=== PATIENT | female | born 1990 | race Caucasian/White ===

== ENCOUNTER 2020-05-31 12:46 | Outpatient (REF) | payer MEDICAID, SELFPAY ==
[2020-06-02 12:00] LABS: BV Int Neg Control Negative (Negative); BV Int Pos Control Positive (Positive)
== END 2020-05-31 12:47 | disposition home or self-care (01) ==
LOC: HO.LAB 12:46
PROVIDERS: Visit Provider Advanced Practice Midwife
DX: N89.8 Other specified noninflammatory disorders of vagina (principal); Z20.2 Contact with and (suspected) exposure to infections with a predominantly sexual mode of transmission
CPT/HCPCS: 87480; 87491; 87510; 87591; 87660

== ENCOUNTER 2020-06-24 15:09 | Outpatient (REF) | payer MEDICAID, SELFPAY ==
[2020-06-25 12:05] LABS: BV Int Neg Control Negative (Negative); BV Int Pos Control Positive (Positive)
== END 2020-06-24 15:10 | disposition home or self-care (01) ==
LOC: HO.LAB 15:09
PROVIDERS: Visit Provider Advanced Practice Midwife
DX: Z20.2 Contact with and (suspected) exposure to infections with a predominantly sexual mode of transmission (principal); Z86.19 Personal history of other infectious and parasitic diseases
CPT/HCPCS: 87480; 87510; 87660; 99212

== ENCOUNTER 2020-11-26 13:38 | Outpatient (REF) | payer MEDICAID, SELFPAY ==
[2020-11-27 07:41] LABS: HIV AB/AG Nonreactive (Nonreactive); ~HepC Num1 0.06 S/CO (0.00-0.79); ~Hepatitis C Antibody Nonreactive (Nonreactive)
[2020-11-27 07:48] LABS: HBsAGNum1 0.21 S/CO (0.00-0.99); Hepatitis B Surface Antigen Negative (Negative)
[2020-11-27 08:01] LABS: Syphilis Screen Nonreactive (Nonreactive)
[2020-11-27 09:39] LABS: CT PCR NOT DETECTED (Not Detect.); NG PCR NOT DETECTED (Not Detect.)
[2020-11-27 10:05] LABS: BV Int Neg Control Negative (Negative); BV Int Pos Control Positive (Positive)
== END 2020-11-26 13:39 | disposition home or self-care (01) ==
LOC: HO.LAB 13:38
PROVIDERS: Visit Provider Advanced Practice Midwife
DX: Z01.419 Encounter for gynecological examination (general) (routine) without abnormal findings (principal); Z01.84 Encounter for antibody response examination; Z11.4 Encounter for screening for human immunodeficiency virus [HIV]; N89.8 Other specified noninflammatory disorders of vagina; Z20.2 Contact with and (suspected) exposure to infections with a predominantly sexual mode of transmission
CPT/HCPCS: 36415; 86780; 86803; 87340; 87389; 87480; 87491; 87510; 87591; 87660; 99212

== ENCOUNTER → 2020-12-09 11:22 | Outpatient (BNVA) | payer MEDICAID, SELFPAY | PROVIDERS: Visit Provider Obstetrics & Gynecology ==

== ENCOUNTER → 2020-12-18 15:34 | Outpatient (BNVA) | payer MEDICAID, SELFPAY | PROVIDERS: Visit Provider Obstetrics & Gynecology ==

== ENCOUNTER 2021-01-15 10:22 | Emergency (ER) | payer OTHER, MEDICAID, SELFPAY ==
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
[2021-01-15 10:39] VITALS: BP 111/65; PULSE 68; RESP 16; TEMP 37; O2SAT 100; BMI 29.5
[2021-01-15 10:42] VITALS: BP 116/74; PULSE 72; O2SAT 99
[2021-01-15] MEDS: Acetaminophen 325 MG TABLET 650 MG PO (11:51)
== END 2021-01-15 12:38 | disposition home or self-care (01) ==
PROVIDERS: Emergency Provider Emergency Medicine
DX: S16.1XXA Strain of muscle, fascia and tendon at neck level, initial encounter (principal); V43.52XA Car driver injured in collision with other type car in traffic accident, initial encounter; Y93.89 Activity, other specified; Y92.414 Local residential or business street as the place of occurrence of the external cause; Y99.9 Unspecified external cause status
CPT/HCPCS: 70450; 72125; 99283; 99284

== ENCOUNTER 2023-04-19 13:12 | Outpatient (REF) | payer MEDICAID, SELFPAY ==
[2023-04-19 14:58] LABS: Hematocrit 35.7 % (37.0-47.0); Hemoglobin 11.7 g/dl (12.0-16.0); Mean Corpuscular HGB Conc 32.8 g/dl (31.0-35.0); Mean Corpuscular Volume 94.4 fL (80.0-98.0); Mean Platelet Volume 10.4 fL (9.4-12.3); Platelet Count 240 X10*3/uL (160-400); Red Blood Count 3.78 X10*6/uL (4.20-5.50); Red Cell Distribution Width 12.9 % (11.0-16.0); White Blood Count 5.7 X10*3/uL (4.8-10.8)
[2023-04-19 15:33] LABS: Alanine Aminotransferase 9 U/L (0-31); Alkaline Phosphatase 58 U/L (39-117); Anion Gap 10 (12-20); Aspartate Amino Transferase 18 U/L (5-31); Bilirubin Total 0.4 mg/dL (0.0-1.0); Blood Urea Nitrogen 9 mg/dL (9-16); Calcium 9.1 mg/dL (8.4-10.2); Carbon Dioxide 29 mmol/L (22-29); Chloride 103 mmol/L (96-108); Estimated Glomerular Filt Rate > 60; Glucose Random 97 mg/dL (60-115); Potassium 3.4 mmol/L (3.3-5.1); Sodium 139 mmol/L (135-145); Total Protein 6.9 g/dL (6.5-8.0)
[2023-04-20 13:14] LABS: Transglutaminase IgA <1.0 U/mL
[2023-04-20 16:39] LABS: Immunoglobulin A 419 mg/dL (47-310)
== END 2023-04-19 13:13 | disposition home or self-care (01) ==
LOC: HO.LAB 13:12
PROVIDERS: Visit Provider Internal Medicine
DX: R19.4 Change in bowel habit (principal); K52.9 Noninfective gastroenteritis and colitis, unspecified
CPT/HCPCS: 36415; 80053; 82784; 84443; 85027; 86364; 99202

== ENCOUNTER 2023-04-19 13:12 | Outpatient (AMB) | payer MEDICAID, SELFPAY ==
--- NOTE | 2023-04-19 13:17 | A.OFFVIS_ITS ---
Intake Vital Signs 04/19/23 13:19 Height 5 ft Weight 150 lb BMI 29.3 BP 112/64 Blood Pressure Location Lt brachial Position Sitting Intake Visit Reasons: Colitis Intake Note: Phil present in the office as a new patient for Colitis. CC: She went to [facility] because she said there was something that was found on the right side of her colon but she was told to come to GI but she is unfamiliar with what she has. She was getting pains in her left side - she has issues having a BM. She was given Antibiotics but she was having nausea and vomiting and she stopped taking them. Allergies No Known Allergies Allergy (Unknown, Verified 04/19/23 13:20) HPI HPI Comments History of Present Illness Details This is a 32 y.o F with no significant PMH who is here for abnormal scan. Was seen in [facility] ER last month for x2 weeks of LLQ associated with constipation which would get worse on eating. When she had a scan in ER, was told that she had thickening of the L side of the colon from constipation vs infection. She was given Abx which she did not take, and bowel regimen with which her abd sx resolved and has not recurred since. Does not report any fevers, chills, background of diarrhea. No changes in appetite, or weight loss. Currently BMs are regular with x2 senna at bedtime. Primarily sent here for abnormal findings on CT scan but report not available for review. [facility] Medical History IUD (intrauterine device) in place Surgical History Hx of colposcopy with cervical biopsy Family History Maternal Grandmother Diabetes mellitus Social History Alcohol intake: never Gender identity: Female Female Reproductive History Menstrual Age of Menarche: 11 Review of Systems Const All systems reviewed & are unremarkable except as noted in HPI and below Physical Exam Vital Signs: Last Vital Signs BP 112/64 04/19/23 13:19 BMI result Body Mass Index 29.3 Gen appear: NAD HEENT: nonicteric, no cervical lymphadenopathy Chest: CTA CVS: Regular S1/S2 Abd: soft, nontender, nondistended, bowel sounds + Ext: no peripheral edema Neuro: A/Ox3, noted to move all extremities spontaneously Psych: interacting appropriately Assessment & Plan Assessment & Plan (1) Change in bowel habit: Code(s): R19.4 - Change in bowel habit (2) Proctocolitis: Code(s): K52.9 - Noninfective gastroenteritis and colitis, unspecified Plan Appears was seen in ER for severe consipation and may have had some stercoral colitis based on clinical description of ER visit. Will obtain records. Currently asymptomatic and has no GI concerns. BMs are regular on senna. Plan: - Get [facility] - Labs to r/o IBD, celiac, thyroid dysfunction - Does not appear to have an indication for colo at this time but will call pt based on review of above Follow up contingent on above Orders: Orders Comprehensive Met. Panel Today R19.4 - Change in bowel habit Transglutaminase IgA Today R19.4 - Change in bowel habit TSH reflex Free T4 Today R19.4 - Change in bowel habit Calprotectin, Fecal Today R19.4 - Change in bowel habit Complete Blood Count no Diff Today R19.4 - Change in bowel habit Immunoglobulin A Today R19.4 - Change in bowel habit Coding Level of Care Code New Pt Level 4 (74247) Diagnoses Change in bowel habit R19.4 Proctocolitis K52.9
[2023-04-19 13:19] VITALS: BP 112/64; BMI 29.3
== END 2023-04-19 15:56 | disposition home or self-care (01) ==
PROVIDERS: Visit Provider Internal Medicine
DX: R19.4 Change in bowel habit (principal); K52.9 Noninfective gastroenteritis and colitis, unspecified
CPT/HCPCS: 99204

== ENCOUNTER 2023-04-23 10:19 | Outpatient (REF) | payer MEDICAID, SELFPAY ==
[2023-04-29 21:43] LABS: Calprotectin, Fecal 10 mcg/g
== END 2023-04-23 10:20 | disposition home or self-care (01) ==
LOC: HO.LNP 10:19
PROVIDERS: Visit Provider Internal Medicine
DX: R19.4 Change in bowel habit (principal)
CPT/HCPCS: 83993

== ENCOUNTER 2023-07-23 13:52 | Outpatient (REF) | payer MEDICAID, SELFPAY ==
[2023-07-25 20:28] LABS: TS Negative Control Passed; TS Panel A 2; TS Panel B 3; TS Positive Control Passed; TSpotTB Negative (Negative)
[2023-07-26 21:23] LABS: Rubeola IgG (Measles) <13.50 AU/mL
== END 2023-07-23 13:53 | disposition home or self-care (01) ==
LOC: HO.HHCL 13:52
PROVIDERS: Visit Provider Internal Medicine
DX: Z00.00 Encounter for general adult medical examination without abnormal findings (principal); Z11.1 Encounter for screening for respiratory tuberculosis
CPT/HCPCS: 36415; 86481; 86735; 86762; 86765

== ENCOUNTER 2023-09-07 09:54 | Outpatient (REF) | payer MEDICAID, SELFPAY ==
[2023-09-07 11:54] LABS: MANUAL DIFF FLAG NO
[2023-09-07 12:17] LABS: Basophils Percent Auto 0.9 % (0-2); Eosinophils Absolute Auto 0.1 X10*3/uL (0.0-0.4); Eosinophils Percent Auto 1.6 % (0-4); Hematocrit 38.2 % (37.0-47.0); Hemoglobin 12.6 g/dl (12.0-16.0); Imm Gran Abs Auto 0.01 X10*3/uL (0.00-0.03); Imm Gran Pct Auto 0.2 % (0.0-0.4); Lymphocytes Absolute Auto 1.2 X10*3/uL (1.2-4.9); Lymphocytes Percent Auto 27.7 % (20-40); Mean Corpuscular Hemoglobin 30.4 pg (27.0-33.0); Mean Corpuscular Volume 92.3 fL (80.0-98.0); Mean Platelet Volume 10.2 fL (9.4-12.3); Monocytes Absolute Auto 0.3 X10*3/uL (0.1-1.2); Monocytes Percent Auto 7.8 % (2-11); Neutrophils Absolute Auto 2.7 x10*3/uL (2.0-8.3); Neutrophils Percent Auto 61.8 % (45-73); Platelet Count 271 X10*3/uL (160-400); Red Blood Count 4.14 X10*6/uL (4.20-5.50); Red Cell Distribution Width 13.2 % (11.0-16.0); White Blood Count 4.4 X10*3/uL (4.8-10.8)
[2023-09-07 12:21] LABS: Prothrombin Time 12.3 SEC (11.1-13.3)
[2023-09-07 12:24] LABS: Partial Thromboplastin Time 27.6 SEC (26.0-36.8)
[2023-09-07 12:59] LABS: HIV AB/AG Nonreactive (Nonreactive)
[2023-09-07 13:11] LABS: Alanine Aminotransferase 12 U/L (0-31); Albumin Level 4.2 g/dL (3.5-5.0); Alkaline Phosphatase 65 U/L (39-117); Anion Gap 11 (12-20); Aspartate Amino Transferase 19 U/L (5-31); Bilirubin Total 0.4 mg/dL (0.0-1.0); Blood Urea Nitrogen 10 mg/dL (9-16); Calcium 9.3 mg/dL (8.4-10.2); Carbon Dioxide 28 mmol/L (22-29); Chloride 104 mmol/L (96-108); Estimated Glomerular Filt Rate > 60; Glucose Random 89 mg/dL (60-115); Potassium 4.1 mmol/L (3.3-5.1); Sodium 139 mmol/L (135-145); Thyroid Stimulating Hormone 1.11 uIU/mL (0.32-4.0); Total Protein 7.4 g/dL (6.5-8.0)
== END 2023-09-07 09:55 | disposition home or self-care (01) ==
LOC: HO.HHCL 09:54
PROVIDERS: Visit Provider Internal Medicine
DX: Z01.818 Encounter for other preprocedural examination (principal)
CPT/HCPCS: 36415; 80053; 84443; 85025; 85610; 85730; 87389

== ENCOUNTER → 2023-09-07 10:18 | Outpatient (REF) | payer MEDICAID, SELFPAY ==
--- NOTE | 2023-09-07 | ECG_ITS ---
Test Reason : pre op exam Blood Pressure : / mmHG Vent. Rate : 067 BPM Atrial Rate : 067 BPM P-R Int : 156 ms QRS Dur : 086 ms QT Int : 390 ms P-R-T Axes : 055 081 058 degrees QTc Int : 412 ms Normal sinus rhythm Normal ECG No previous ECGs available Referred By: Isabell Garcia Electronically Signed By:Rafy Collier
== END ==
LOC: HO.CARD 10:18
PROVIDERS: PCP Internal Medicine; Visit Provider Internal Medicine
DX: Z01.818 Encounter for other preprocedural examination (principal)
CPT/HCPCS: 36415; 80053; 84443; 85025; 85610; 85730; 87389; 93005

== ENCOUNTER → 2023-09-07 10:39 | Outpatient (BNV) | payer MEDICAID, SELFPAY | PROVIDERS: PCP Internal Medicine; Visit Provider Internal Medicine Cardiovascular Disease | DX: Z01.818 Encounter for other preprocedural examination (principal) | CPT/HCPCS: 93010 ==

== ENCOUNTER 2024-01-21 16:48 | Outpatient (REF) | payer MEDICAID, SELFPAY ==
[2024-01-22 11:31] LABS: Bacterial Vaginosis PCR POSITIVE (Negative); Candida Group PCR NOT DETECTED (Not Detect); Candida glab krusei PCR NOT DETECTED (Not Detect); Trichomonas vaginalis PCR NOT DETECTED (Not Detect)
[2024-01-25 16:04] LABS: HPV mRNA E6/E7 Not Detected (Not Detected)
== END 2024-01-21 16:49 | disposition home or self-care (01) ==
LOC: HO.HHCLNP 16:48
PROVIDERS: Visit Provider Internal Medicine
DX: Z12.4 Encounter for screening for malignant neoplasm of cervix (principal)
CPT/HCPCS: 0352U; 36415; 87624; 88175

== ENCOUNTER 2024-05-29 13:08 | Outpatient (REF) | payer MEDICAID, SELFPAY ==
[2024-05-29 18:22] LABS: Bacterial Vaginosis PCR POSITIVE (Negative); Candida Group PCR NOT DETECTED (Not Detect); Candida glab krusei PCR NOT DETECTED (Not Detect); Trichomonas vaginalis PCR NOT DETECTED (Not Detect)
[2024-05-29 18:56] LABS: CT PCR NOT DETECTED (Not Detect.); NG PCR NOT DETECTED (Not Detect.)
== END 2024-05-29 13:09 | disposition home or self-care (01) ==
LOC: HO.LNP 13:08
PROVIDERS: Visit Provider Registered Nurse
DX: N89.8 Other specified noninflammatory disorders of vagina (principal); R30.0 Dysuria
CPT/HCPCS: 0352U; 87086; 87491; 87591

== ENCOUNTER 2024-05-30 14:22 | Outpatient (AMB) | payer MEDICAID, SELFPAY ==
--- NOTE | 2024-05-30 14:23 | MHC.OFFVIS ---
Intake Visit Reasons: TV BC consult Allergies No Known Allergies Allergy (Unknown, Verified 05/30/24 14:23) Medication List - Last Reconciled 05/30/24 by Bhumi Tyler CNM cyclobenzaprine 10 mg PO TID PRN ibuprofen 600 mg PO Q8H PRN levonorgestrel (Mirena) intrauterine Is last menstrual period known: Yes Last menstrual period: 05/13/24 HPI HPI TV BC consult: Details: This is a tele visit to discuss patient's control she has the ParaGard IUD and it has been in since 2017 but she wants to talk about getting it taken out because she feels she is getting too many episodes of bacterial vaginosis she has been going to the [facility] for evaluations of her vaginal discharge whenever she has symptoms and she says she has gets maybe 4 episodes of BV a year she is with her same partner for the last 10 years. She says she checks out negative for all the other infections. She says they just diagnosed her recently and called her and told her there would be sending a prescription to her pharmacy and she chose the pills and she is going to go pick them up.. Patient says she really wants to just get her tubes tied but she has thinking that the IUD had something to do with all the recurrences of BV. [facility] Medical History (Updated 05/30/24 @ 15:04 by Bhumi Tyler CNM) IUD (intrauterine device) in place Surgical History Hx of colposcopy with cervical biopsy Family History Maternal Grandmother Diabetes mellitus Social History Alcohol intake: never Gender identity: Female Female Reproductive History Menstrual Age of Menarche: 11 Duration of menses: 3-5 days Date of last menstrual period: 05/13/24 control method: progestin IUCD Total pregnancies: 3 Full term: 3 Telehealth Telehealth Telehealth Platform: Telephone Location of provider rendering services: practice address Location of patient: address on file Patient Identification confirmed using: Name, : Yes Telehealth method: voice only Patient verbally consented to treatment: Yes Patient verbally consented to billing insurance company: Yes Patient informed of any privacy concerns related to visit: Yes Minutes spent on Phone/Video with Pt.: 19 (3 cr/19 speaking w pt /managing concerns;8 charting.) Results Reviewed Results Reviewed: per our records 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 Assessment & Plan Assessment & Plan (1) Family planning advice: Code(s): Z30.09 - Encounter for other general counseling and advice on contraception Category: Medical (2) Vaginal odor: Code(s): N89.8 - Other specified noninflammatory disorders of vagina Category: Medical (3) IUD (intrauterine device) in place: Comment: Paragard placed 2016 Code(s): Z97.5 - Presence of (intrauterine) contraceptive device Category: Medical Plan Reviewed patient's desire for tubal ligation. Reviewed her happiness with the ParaGard IUD even if she goes ahead with her plan cover it may not have anything to do with her episodes of bacterial vaginosis and their recurrence and I reviewed issues involved with BV and that often the only solution is to use condoms. She is going to be picking up her metronidazole pills which is her chosen method of treatment from an episode that was diagnosed at the [facility]. Reviewed that if she really wants to have her tubes tied that she should have consultation the director medical affairs and the ParaGard IUD in if it is not causing any trouble until such time as she has her the ligation so she does not have an interim unexpected /she agrees with the logic of this. I also reviewed other potential treatments for occasional recurrences of bacterial vaginosis odor reviewed that many women are findings success occasional use boric acid capsules is discussed various strategies she could consider. Also questioned her need for an annual exam as according to our records she has not had an Pap smears since 2019 she is due. She then remember that she has been getting her in exam and Pap smears with her primary care provider at the [facility] and she assured that her last was negative.. I instructed the patient to call the october number of the office and request an appointment for a tubal ligation consultation visit and have the discussion w director medical affairs, that I would recommend IUD in place until such time as that occurs. Coding Level of Care Code Tele Est Pt Level 3 (25121) Diagnoses Family planning advice Z30.09 Vaginal odor N89.8 IUD (intrauterine device) in place Z97.5 Time Spent (min) 30
== END 2024-05-30 15:13 | disposition home or self-care (01) ==
LOC: HO.HWSM 14:22
PROVIDERS: PCP Internal Medicine; Visit Provider Advanced Practice Midwife
DX: Z30.09 Encounter for other general counseling and advice on contraception (principal); N89.8 Other specified noninflammatory disorders of vagina; Z97.5 Presence of (intrauterine) contraceptive device
CPT/HCPCS: 99213

== ENCOUNTER → 2024-05-30 14:22 | Outpatient (BNVA) | payer MEDICAID, SELFPAY | PROVIDERS: PCP Internal Medicine; Visit Provider Advanced Practice Midwife ==

== ENCOUNTER 2024-12-05 10:46 | Outpatient (AMB) | payer MEDICAID, SELFPAY ==
--- NOTE | 2024-12-05 10:47 | A.OFFVIS_ITS ---
Vital Signs 12/05/24 10:49 Height 5 ft Weight 140 lb BMI 27.3 BP 110/72 Intake Visit Reasons: Tubal consult Intake Note: patient here for tubal consult, have 3 children [address] Light Lamp Cleaner Required: Yes Street Light Lamp Cleaner Language: Floor Nurse Services: Street Light Lamp Cleaner Present (in person) Street Light Lamp Cleaner Name: Marely JEAN Information Interpreted: non-clinical & clinical Accompanied by: Self / Same As Patient Allergies No Known Allergies Allergy (Unknown, Verified 12/05/24 10:52) Is last menstrual period known: Yes Last menstrual period: 11/22/24 HPI Comments Details: Presenting to discuss different options of control. 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 Sexually active: Yes Sexual orientation: Straight/Heterosexual Gender identity: Female Female Reproductive History Menstrual Age of Menarche: 11 Date of last menstrual period: 11/22/24 control method: copper IUCD Total pregnancies: 3 Full term: 3 Number of Living Children: 3 Date of last pap smear: 01/21/24 Review of Systems Const All systems reviewed & are unremarkable except as noted in HPI and below Reports as per HPI and Reports no additional complaints GI Reports no additional complaints Reports no additional complaints Physical Exam Vital Signs: Last Vital Signs BP 110/72 12/05/24 10:49 BMI result Body Mass Index 27.3 Assessment & Plan Assessment & Plan (1) Family planning advice: Code(s): Z30.09 - Encounter for other general counseling and advice on contraception Category: Medical Plan: Discussed with the patient the different options of control including control pills/Nuvaring, DMPA, different types of IUD ?s, sterilization. All the pros, cons, risks and benefits of each were discussed with the patient. The patient decided to go ahead with an IUD, so a more detailed discussion was carried on including types (Progesterone, Copper), mechanism of action, risks (infection, uterine perforation, failure with ectopic , septic AB, dysmenorrhea with Paraguard, others) benefits (efficient contraceptive method, hypo menorrhea with Progesterone IUD, others) GC/CG will be taken and the patient was asked to call day one of next cycle for ParaGard IUD removal and Mirena IUD insertion. Coding Level of Care Code Est Pt Level 3 (81774) Diagnoses Family planning advice Z30.09
[2024-12-05 10:49] VITALS: BP 110/72; BMI 27.3
--- OUTSIDE RECORDS SUMMARY | 2024-12-05 12:07 | XMS_ITS | Encounter Summary ---
Author Organization [employer] [facility] Address [address] [place] [address] [address] [place] [address] Care Team Providers Care Tool Room Machinist Name Role Phone Isabell Cotton MD Primary Care Provide r Encounter Details Date Type Department Care Team (Late st Contact Info) Description 06/29/2023 Telephone [facility] MEDICINE [address] [place], [place] [phone] Isabell Cotton MD [address] [place] [address] Social History Tobacco Use Types Packs/Day Years Used Date Smoking Tobacco: Never Smokeless Tobacco: Never Alcohol Use Standard Drinks/Week Comments Yes 0 (1 standard drink = 0.6 oz pur e alcohol) Occassionally Comments Unknown Sex and Gender Information Value Date Recorded Sex Assigned at Female 04/13/2022 10:16 AM EDT Legal Sex Female 10:16 AM EDT Gender Identity Female 04/13/2022 10:16 AM EDT Sexual Orientation Straight 04/13/2022 10 :16 AM EDT documented as of this encounter Plan of Treatment Not on file documented as of this encounter Visit Diagnoses Not on filedocumented in this encounter Care Teams Tool Room Machinist Relationship Specialty Start Date End Date Isabell Cotton MD [address] [place] [address] [phone] PCP - General Family Medicine 03/02/18 documented as of this encounter
== END 2024-12-05 11:14 | disposition home or self-care (01) ==
LOC: HO.HWS 10:46
PROVIDERS: PCP Internal Medicine; Visit Provider Obstetrics & Gynecology
DX: Z30.09 Encounter for other general counseling and advice on contraception (principal)
CPT/HCPCS: 99213

== ENCOUNTER → 2024-12-05 10:46 | Outpatient (BNVA) | payer MEDICAID, SELFPAY | PROVIDERS: PCP Internal Medicine; Visit Provider Obstetrics & Gynecology | DX: Z30.09 Encounter for other general counseling and advice on contraception (principal) | CPT/HCPCS: 99212 ==

== ENCOUNTER 2024-12-21 08:28 | Outpatient (REF) | payer MEDICAID, SELFPAY ==
[2024-12-21 15:47] LABS: CT PCR NOT DETECTED (Not Detect.); NG PCR NOT DETECTED (Not Detect.)
== END 2024-12-21 08:29 | disposition home or self-care (01) ==
LOC: HO.LNP 08:28
PROVIDERS: PCP Internal Medicine; Visit Provider Obstetrics & Gynecology
DX: Z30.433 Encounter for removal and reinsertion of intrauterine contraceptive device (principal); Z32.02 Encounter for pregnancy test, result negative
CPT/HCPCS: 58300; 58301; 81025; 87491; 87591; J7298

== ENCOUNTER 2024-12-21 08:28 | Outpatient (AMB) | payer MEDICAID, SELFPAY ==
--- NOTE | 2024-12-21 08:32 | MHC.OFFVIS ---
Vital Signs 12/21/24 08:36 Height 5 ft Weight 140 lb BMI 27.3 Intake Visit Reasons: Paragard removal /mirena insertion Gem Stone Cutter Required: Yes Gem Stone Cutter Language: Concrete Mixing Plant Superintendent Services: Gem Stone Cutter Present (in person) Gem Stone Cutter Name: Marely JEAN Information Interpreted: non-clinical & clinical Sign Painter Apprentice: Sign Painter Apprentice Present (Marely JEAN) Accompanied by: Self / Same As Patient Allergies No Known Allergies Allergy (Unknown, Verified 12/21/24 08:36) HPI Comments Details: Presenting for ParaGard IUD removal and Mirena IUD insertion. 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 Sexual orientation: Straight/Heterosexual Gender identity: Female Female Reproductive History Menstrual Age of Menarche: 11 Review of Systems Const All systems reviewed & are unremarkable except as noted in HPI and below Reports as per HPI and Reports no additional complaints GI Reports no additional complaints Reports no additional complaints Office Procedures IUD Insert/Removal Details Details: ParaGard IUD removal Counseling/Consent: After discussing with the patient the risks of the procedure including bleeding, infection, scar tissue formation, , possible injury to blood vessels or nerves, chronic arm pain, blood transfusion, and irregular unpredictable bleeding Alternative options were discussed with the patient including but not limited: Do nothing. The patient signed the consent and agreed with the plan; all questions answered. Urine test was done in the office and was negative Preop dx: Requesting ParaGard IUD removal Op: ParaGard IUD removal Post op dx: same EBL= 10 cc Procedure: The patient was put in the dorsal lithotomy position a speculum was inserted in the vagina the IUD thread identified. Using a Deedee clamp the thread was grasped and the IUD pulled out with no complications. The patient tolerated the procedure well and was advised to use a different method for contraception. This was followed by Mirena IUD insertion Mirena IUD insertion The patient is presenting for Mirena IUD insertion Urine test was done in the office and was negative; All the contraindications were excluded. The following possible complications were discussed with the patient: Intrauterine , Ectopic , Sepsis, Pelvic Infection, Irregular Bleeding and Amenorrhea, Perforation, Expulsion, Ovarian Cysts, Breast Cancer, The following adverse effects were discussed with the patient: alteration of menstrual bleeding pattern, including: unscheduled uterine bleeding decreased uterine bleeding increased scheduled uterine bleeding female genital tract bleeding ,amenorrhea , genital discharge , vulvovaginitis , breast pain , benign ovarian cyst and associated complications , dysmenorrhea , Gastrointestinal disorders abdominal/pelvic pain, headache/migraine , back pain , acne , depression Alternative options were discussed with the patient including but not limited: control pills, patch, NuvaRing, Depo-medroxyprogesterone acetate, Nexplanon, copper IUD, sterilization, vasectomy, others The procedure was explained in detail to patient , at the end patient signed the informed consent obtained. A no touch technique was used throughout the procedure. A speculum was placed into vagina and cervix was cleaned with betadine). A tenaculum was placed. A plastic sound was advanced through the external and internal os until it reached the fundus of the uterus, the depth was 8 cm. The sound was then withdrawn. The IUD was loaded in a sterile manner and advanced into position. The string was visualized and cut to 3 cm. Tenaculum site hemostatic. All instruments removed from vagina. Patient tolerated the procedure well. NO complications were noted. Patient was instructed to call for fever over 100.4, significant pain unrelieved by Motrin, IUD expulsion, heavy bleeding, or abnormal discharge. In addition, the following clinical considerations were discussed with the patient to call for removal: A stroke or heart attack ,Very severe or migraine headaches ,Unexplained fever ,Yellowing of the skin or whites of the eyes, as these may be signs of serious liver problems , or suspected , Pelvic pain or pain during sex ,HIV positive seroconversion in herself or her partner , Possible exposure to sexually transmitted infections Unusual vaginal discharge or genital sores , severe vaginal bleeding or bleeding that lasts a long time, or if she misses a menstrual period, Inability to feel Mirena's threads Counseled the patient that the IUD does not protect against STI's, recommended use of condoms for the first 7 days post insertion and explained to the patient that condoms are recommended for patients at risk for sexually transmitted infections. Informed the patient that Mirena IUD is FDA approved for 8 years for contraception for 5 years for the treatment of heavy menses Instructed the patient to schedule a Follow up appointment in 4 to 6 weeks following insertion. This note was generated with a voice recognition program. Some errors may have been overlooked during the review of this note. Sometimes these errors may affect the content or meaning of a given sentence. 82400-NCX Insertion 69082-JSV Removal Procedure code (CPT) selection complete Office Meds Mirena 21 mcg/24 hr (up to 8 years) 52 mg intrauterine device Performing Provider: Shon Dominguez MD Performing Location: [facility] Documented (not given) by: Shon Dominguez MD on 12/21/24 08:46 Dose Route Admin Location Dispensed Lot Number Expiration Date [facility] Flatbed Owner Operator 1 device intrauterine ea Total Dispensed Waste n/a n/a Assessment & Plan Assessment & Plan (1) Encounter for IUD removal and reinsertion: Code(s): Z30.433 - Encounter for removal and reinsertion of intrauterine contraceptive device Category: Medical Plan: UPT done in the office was negative, GC/CT done, ParaGard IUD removed, Mirena IUD inserted, see procedure note Orders: Orders AMB IUD Insertion/Removal - Practice Supplied Today Z30.433 - Encounter for removal and reinsertion of intrauterine contraceptive device AMB HCG Urine Test Today Z32.02 - Encounter for test, result negative Medications: New Mirena (levonorgestrel) 1 device intrauterine ONCE 1 ea 0RF IUD removal/insertion NS Z30.433 - Encounter for removal and reinsertion of intrauterine contraceptive device Coding Level of Care Code Procedure Only Diagnoses Encounter for IUD removal and reinsertion Z30.433 CPT Codes Details - CPT: 66041-LPP Insertion ([id number]) Details - CPT: 13681-QTO Removal ([id number])
[2024-12-21 08:36] VITALS: BMI 27.3
--- OUTSIDE RECORDS SUMMARY | 2024-12-21 08:40 | XMS_ITS | Encounter Summary ---
Author Organization [facility] Address [address] [place] [address] [address] [place] [address] Care Team Providers Care Neon Glass Blower Name Role Phone Isabell Cotton MD Primary Care Provide r Encounter Details Date Type Department Care Team (Late st Contact Info) Description 06/29/2023 Telephone [facility] MED[facility]INE [address] [place], [place] [phone] Isabell Cotton MD [address] [place] [address] Social History Tobacco Use Types Packs/Day Years [...] on filedocumented in this encounter Care Teams Neon Glass Blower Relationship Specialty Start Date End Date Isabell Cotton MD [address] [place] [address] [phone] PCP - General Family Medicine 03/02/18 documented as of this encounter
== END 2024-12-21 09:03 | disposition home or self-care (01) ==
LOC: HO.HWS 08:28
PROVIDERS: PCP Internal Medicine; Visit Provider Obstetrics & Gynecology
DX: Z30.433 Encounter for removal and reinsertion of intrauterine contraceptive device (principal); Z32.02 Encounter for pregnancy test, result negative
CPT/HCPCS: 58300; 58301

== ENCOUNTER 2025-02-08 11:12 | Outpatient (AMB) | payer MEDICAID, SELFPAY ==
--- NOTE | 2025-02-08 11:34 | MHC.OFFVIS ---
Intake Visit Reasons: IUD check Public Service Director Required: Yes Public Service Director Language: Isotope Hydrologist Services: Public Service Director Present (in person) Public Service Director Name: TED Neri Information Interpreted: non-clinical & clinical Customer Strategy Manager: Customer Strategy Manager Present (TED Neri) Accompanied by: Self / Same As Patient Allergies No Known Allergies Allergy (Unknown, Verified 02/08/25 11:35) HPI Comments Details: The patient is presenting for IUD check after 1 st period following IUD insertion. The patient has no complaints periods are normal, not painful, and flow is normal. 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 Sexual orientation: Straight/Heterosexual Gender identity: Female Female Reproductive History Menstrual Age of Menarche: 11 Review of Systems Const All systems reviewed & are unremarkable except as noted in HPI and below Physical Exam General: Yes no CVA tenderness External Female Exam: normal external appearance and normal appearance of the urethra Speculum Exam - Vagina: normal appearance of the vagina, normal palpation, no lesions and no masses Speculum Exam - Cervix: normal appearance of the cervix, normal palpation, no lesions, no masses, nontender and Other cervical findings present (IUD thread seen) Bimanual exam- vagina & uterus: normal bimanual exam, normal palpation, uterine size normal, normal palpation, uterine shape normal, No Cervical tenderness present and non-tender Bimanual Exam- Adnexa, other: normal adnexae Back/Spine/Pelvis Back: no CVA tenderness Results AMB Test Urine AMB Test Urine Negative Last Edit by Marely Gunn CMA on 02/08/25 11:35 Results Reviewed Results Reviewed: Laboratory Last Values [facility] Negative 02/08/25 11:34 Assessment & Plan Assessment & Plan (1) IUD check up: Code(s): Z30.431 - Encounter for routine checking of intrauterine contraceptive device Category: Medical Plan: UPT done in the office was negative. Discussed with the patient the finding on physical exam, IUD string in place, the patient was reassured. Instructions given to patient to call in case of temperature above 100.4, severe cramping/pelvic pain, abnormal discharge or abnormal uterine bleeding or if she misses her menstrual cycle. Otherwise follow-up at her annual exam appointment. All questions answered, the patient verbalized understanding. Orders: Orders AMB HCG Urine Test Today Z32.02 - Encounter for test, result negative Coding Level of Care Code Est Pt Level 3 (73342) Diagnoses IUD check up Z30.431
--- OUTSIDE RECORDS SUMMARY | 2025-02-08 12:31 | XMS_ITS | Encounter Summary ---
Author Organization [facility] Address [address] [place] [address] 7 [place] [address] Care Team Providers Care Footwear Factory Worker Name Role Phone Isabell Cotton MD Primary Care Provide r Reason for Visit * Reason Onset Date Comments Appointment Request 12/30/2023 Encounter Details Date Type Department Care Team ([facility] Contact Info) Description 12/30/2023 Telephone [facility] MEDICINE [address] [place], [place] [phone] Isabell Cotton MD [address] [place], [place] [phone] Appointment Request Social History Tobacco Use Types Packs/Day Years Used Date Smoking Tobacco: Never Passive Smoke Exposure: Never Smokeless Tobacco: Never Alcohol Use Standard Drinks/Week Comments Yes 0 (1 standard drink = 0.6 oz pur e alcohol) Occassionally Depression Answer Date Recorded Patient Health Questionnaire-9 Score 0 07/23/2023 Patient Health Questionnaire-9 Score 0 07/23/2023 Last PHQ-9: Questionnaire Data Not on file 0 07/23/2023 Housing Stability Answer Date Recorded What is your housing situation today? I have darion wheat 07/20/[address] you li ve. Do you have problems with any of the following? None of the above 07/20/2023 Food Insecurity Answer Date Recorded Within the past 12 months, y ou worried that your food would run out before you got money to buy more: Never True 07/20/2023 Within the past 12 months,th e food you bought just didn't last and you didn't have enough money to get more: Never True 11/2023 Transportation Answer Date Recorded In the past 12 months, has l ack of transportation kept you from medical appts, meetings, work or from getting things needed for daily living? No 07/20/2023 Utilities Answer Date Recorded In the past 12 months, has t he electric, gas, oil or water company threatened to shut off services in your home? No 07/20/2023 Depression Answer Date Recorded Patient Health Questionnaire-2 Score 0 07/23/2023 Comments Unknown Sex and Gender Information Value Date Recorded Sex Assigned at Female 04/13/2022 10:16 AM EDT Legal Sex Female 10:16 AM EDT Gender Identity Female 04/13/2022 10:16 AM EDT Sexual Orientation Straight 04/13/2022 10 :16 AM EDT documented as of this encounter Miscellaneous Notes * Telephone Encounter - Justo Mason - 12/30/2023 10:00 AM EDT Tc from patient calling to reschedule the PAP appt from 12/13 however there was no availability at the moment documented in this encounter Plan of Treatment Not on file documented as of this encounter Visit Diagnoses Not on filedocumented in this encounter Additional Health Concerns Assessment Noted Time PHQ-9 Depression Total Score: 0 07/23/19 24 1:09 PM EST documented as of this encounter Care Teams Footwear Factory Worker Relationship Specialty Start Date End Date Isabell Cotton MD [address] [place] [address] PCP - General Family Medicine 03/02/18 documented as of this encounter
--- OUTSIDE RECORDS SUMMARY | 2025-02-08 12:31 | XMS_ITS | Encounter Summary ---
Author Organization [facility] Address [address] [place] [address] 7 [place] [address] Care Team Providers Care Baking Assistant Name Role Phone Isabell Cotton MD Primary Care Provide r Encounter Details Date Type Department Care Team (Late st Contact Info) Description 06/29/2023 Telephone [facility] [address] [place], [place] [phone] Isabell Cotton MD [address] [place] [address] Social History Tobacco Use Types Packs/Day Years [...] on filedocumented in this encounter Care Teams Baking Assistant Relationship Specialty Start Date End Date Isabell Cotton MD [address] [place] [address] [phone] PCP - General Family Medicine 03/02/18 documented as of this encounter
--- OUTSIDE RECORDS SUMMARY | 2025-02-08 12:32 | XMS_ITS | Clinical Summary ---
Author Organization [employer] Address [address] [place] [address] [address] [place] [address] Care Team Providers Care Radiology Director Name Role Phone Isabell Cotton MD Primary Care Provide r Allergies No known active allergies Medications amoxicillin-clavu lanate (Augmentin) 500-125 MG tablet Take 1 tablet by mouth 2 times daily. 03/27/2023 Active traMADol (Ultram) 50 MG tablet Take 50 mg by mouth every 12 (twelve) hours. 03/27/2023 Active senna (Senokot) 8.6 MG tabletIndications :Other constipation Take 1 tablet (8.6 mg) by mouth at bedtime. 120 tablet 07/23/2023 Active Active Problems Problem Noted Date Diagnosed Date Encounter for screening for cervical cancer 02/2024 Assessment & Plan (01/21/2024 10:28 AM EDT): Pelvic exam and PAP smear done patent will be contacted with results Preop examination 09/07/2023 Assessment & Plan (09/07/2023 9:43 AM EDT): Patient is low risk her RCRI score is 0 which means a 3.9% Patient is clear for surgery Phil is here today for pre-operative evaluation. Reports no sx of CP, SOB, [place], at rest or with exertion. No paroxsysmal nocturnal orthopnea, LE swelling or palpitations. No h/o CVD, diabetes, kidney disease, recent anticoagulant or antithrombotic use, personal h/o coagulopathy. No allergies to iodine, latex or tape. Phil reports functional capacity of 10 METS. Can run across street or walk up flight of stairs without SOB or CP. Labs and EKG requested where ordered today Encounter for preventive care 07/23/2023 Assessment & Plan (07/23/2023 3:11 PM EST): See HPI Other constipation 07/23/2023 Assessment & Plan (07/23/2023 3:10 PM EST): I advise to increase water intake and fiber on diet, I advise to walk more Senna will be prescribe today Vaginal discharge 07/23/2023 Assessment & Plan (07/23/2023 3:11 PM EST): Patient with h/o repetitive BV infections and clinical picture consist again with BV infection I will prescribe oral metronidazole Fatigue 07/22/2023 07/22/2023 Eczema 11/09/2012 07/22/2023 Depressive disorder 12/14/2011 07/22/2023 Encounters Date Type Department Care Team Description 12/21/2024 Orders Only GENERIC EXTERNAL DATA DEPARTMENT Provider, Generic External Data from Last 3 Months Immunizations Immunization Administration Dates Next Due DTaP 08/18/1996, 4,1992,1992,1992 HPV, Bivalent 05/13/2009,01/08/2009,11/09/2008 Hep A, Adult 01/14/2022 Hep A, ped/adol, 2 dose 04/08/2006 Hep B, Adolescent or Pediatric 04/24/1997,1996,06/20/1996 Hep B, Unspecified 1992 Hib (HbOC) 08/27/1993,199 3,1992,1992 IPV 07/21/1996, 4,1992,1992 Influenza injectable quadriv alent preservative free 07/23/2023,03/05/2016,09/27/2015 MMR 01/14/2022,199 4,1993,1992 Pfizer Covid-19 Vaccine 12+ 07/23/2023 Tdap 04/27/2016,03/25/2006 Varicella 01/14/2022,04/05/2000 Social History Tobacco Use Types Packs/Day Years Used Date Smoking Tobacco: Never Passive Smoke Exposure: Never Smokeless Tobacco: Never Tobacco Cessation:Counseling Given: Not Answered Alcohol Use Standard Drinks/Week Comments Yes 0 (1 standard drink = 0.6 oz pur e alcohol) Occassionally Depression Answer Date Recorded Patient Health Questionnaire-9 Score 0 07/23/2023 Patient Health Questionnaire-9 Score 0 07/23/2023 Last PHQ-9: Questionnaire Data Not on file 0 07/23/2023 Housing Stability Answer Date Recorded What is your housing situation today? I have darion wheat 08/29/[address] you li ve. Do you have problems with any of the following? Pests such as bugs, ants, or mice 08/29/2024 Food Insecurity Answer Date Recorded Within the past 12 months, y ou worried that your food would run out before you got money to buy more: Never True 08/29/2024 Within the past 12 months,th e food you bought just didn't last and you didn't have enough money to get more: Never True Transportation Answer Date Recorded In the past 12 months, has l ack of transportation kept you from medical appts, meetings, work or from getting things needed for daily living? No 08/29/2024 Utilities Answer Date Recorded In the past 12 months, has t he electric, gas, oil or water company threatened to shut off services in your home? No 08/29/2024 Depression Answer Date Recorded Patient Health Questionnaire-2 Score 0 07/23/2023 Internet Access Answer Date Recorded Internet Access Q1 Yes 08/29/2024 Internet Access Q2 Not on file 08/29/2024 Comments Unknown Sex and Gender Information Value Date Recorded Sex Assigned at Female 04/13/2022 10:16 AM EDT Legal Sex Female 10:16 AM EDT Gender Identity Female 04/13/2022 10:16 AM EDT Sexual Orientation Straight 04/13/2022 10 :16 AM EDT Last Filed Vital Signs Vital Sign Reading Time Taken Comments Blood Pressure 114/77 05/29/2024 10:36 AM EST Pulse 95 05/29/2024 10:36 AM EST Temperature 36.7 C (98.1 F) 05/29/2024 10:36 AM EST Respiratory Rate 18 05/29/2024 10:36 AM EST Oxygen Saturation 98% 05/29/2024 10:36 AM EST Inhaled Oxygen Concentration - - Weight 66.2 kg (146 lb) 05/29/2024 10:36 AM EST Height 152.4 cm (5') 05/29/2024 10:36 AM EST Body Mass Index 28.51 05/29/2024 10:36 AM EST Plan of Treatment Health Maintenance Due Date Last Done Comments Disability Screening 1992 Alcohol/Substance Use Screening 2004 Family Planning (PISQ) 2007 COVID-19 Vaccine ( season) 2024 07/23/2023, 04/09/2022, 10/14/2020, Additional history exists Depression Screening 07/23/2024 07/23/2023, 07/23/19 24 Influenza Vaccine (#1) 2025 , 03/05/2016, 09/27/2015 Tobacco Screening 05/29/2025 05/29/2024 SDOH Screening 08/29/2025 08/29/2024 DTaP/Tdap/Td Vaccines (8 - Td or Tdap) 04/27/2026 04/27/2016, 03/25/2006, 08/18/1996, Additional history exists Cervical Cancer Screening 01/20/2029 HPV/Cotest 01/20/2029 01/21/2024 Pap Smear 01/20/2029 01/21/2024 Zoster Vaccines (1 of 2) 2042 RSV Patients and Patients Aged 60 years or older (1 - 1-dose 75+ series) 2067 HIB Vaccines Completed 08/27/1993, 01/12, 1992, Additional history exists IPV Vaccines Completed 07/21/1996, 07/1993, 1992, Additional history exists Hepatitis B Vaccines Completed 04/24/1997, 09/20/1996, 06/20/1996, Additional history exists HPV Vaccines Completed 05/13/2009, 12/13, 11/09/2008 Hepatitis A Vaccines Completed 01/14/2022, 04/08/20 06 Hepatitis C Screening Completed 02/09/2022, 021 HIV Screening Completed 09/07/2023, 01/13, 02/06/2021, Additional history exists Meningococcal B Vaccine Aged Out No l onger eligible based on patient's age to complete this topic Meningococcal Vaccine Aged Out No chidi kinza eligible based on patient's age to complete this topic Pneumococcal Vaccine: Pediatrics (0 to 5 Years) and At-Risk Patients (6 to 49) Years Aged Out No longer eligible based on patient's age to complete this topic RSV under 20 months Aged Out No longe r eligible based on patient's age to complete this topic Rotavirus Vaccines Aged Out No longer eligible based on patient's age to complete this topic Procedures Procedure Name Priority Date/Time Associated Diagnosis Comments CHLAMYDIA/N. GONORRHOEAE RNA, TMA, UROGENITAL Routine 12/21/2024 8:30 AM EDT THINPREP IMAGING PAP AND HPV MRNA E6/E7 Routine 01/21/2024 10:29 AM EDT HIV 1/2 ANTIGEN/ANTIBODY, FOURTH GENERATION W/RFL Routine 09/07/2023 9:58 AM EDT Preop examination ZZZ HISTORICAL HEPATITIS C AB W/REFL TO HCV RNA, QN, PCR Routine 02/09/2022 10:21 AM EDT from Last 3 Months or Most Recently Relevant to Health Maintenance Results * Chlamydia/N. Gonorrhoeae RNA, TMA, Urogenitial (12/21/2024 8:30 AM EDT) CT PCR NOT DETECTED Not Detect. [facility] Comment:A not detected test result does not exclude the possibilityof infection because test results can be affected byimproper specimen collection, concurrent antibiotic therapy,or the number of organisms in the specimen which may bebelow the sensitivity of the test. As with many diagnostictests, results from the Xpert CT/NG assay should beinterpreted in conjunction with other laboratory andclinical data available to the clinician.Xpert CT/NG performance has not been evaluated in patientsless than 14 years of age. The assay should not be used forthe evaluationof suspected sexual abuse or for other medico-legalindications. Additional testing is recommended in anycircumstance when false positive or false negative resultscould lead to adverse medical, social or psychologicalconsequences. NG PCR NOT DETECTED Not Detect. [facility] Comment:A not detected test result does not exclude the possibilityof infection because test results can be affected byimproper specimen collection, concurrent antibiotic therapy,or the number of organisms in the specimen which may bebelow the sensitivity of the test. As with many diagnostictests, results from the Xpert CT/NG assay should beinterpreted in conjunction with other laboratory andclinical data available to the clinician.Xpert CT/NG performance has not been evaluated in patientsless than 14 years of age. The assay should not be used forthe evaluationof suspected sexual abuse or for other medico-legalindications. Additional testing is recommended in anycircumstance when false positive or false negative resultscould lead to adverse medical, social or psychologicalconsequences. 12/21/2024 8:30 AM EDT 12/21/2024 2:07 PM EDT us Generic External Data Provider LAB MICROBIOLOGY - GENERAL ORDERABLES Final Result [facility] [address] [place] [phone] * ThinPrep Imaging Pap and HPV mRNA E6/E7 (01/21/2024 10:29 AM EDT) HPV nRNA E6/E7 Not Detected Not Detected [facility] Comment:Methodology: Transcr iption-Mediated AmplificationThis assay detects E6/E7 viral messenger RNA (mRNA) from 14high-risk HPV types (16,18,31,33,35,39,45,51,52,56,58,59,66,68).Cervical sources are required for HPV testing.If a vaginal source from a patient who has had atotal hysterectomy with removal of cervix wassubmitted, please contact the testing laboratoryfor alternative testing options.For additional information, please refer tohttp://education.HomeSpace/faq/VFF418l7(This link if provided for information/educational purposes only.)THIS TEST WAS PERFORMED AT:[employer] [address] [id number] ANGELES MD SOURCE: SEE NOTE [facility] Comment:None given Report Status: [facility] Clinical Information: SEE NOTE [facility] Comment:None given LMP: SEE NOTE [facility] Comment:NONE GIVEN Prev. PAP: SEE NOTE [facility] Comment:NONE GIVEN Prev. BX: SEE NOTE [facility] Comment:NONE GIVEN Statement Of Adequacy: SEE NOTE [facility] Comment:Satisfactory for roshan luation.Endocervical/transformation zone componentpresent.Partially obscuring blood General Categorization: [facility] Interpretation/Result: SEE NOTE [facility] Comment:Cytology Results: Ne gative for intraepitheliallesion or malignancy. Cytology Comment SEE NOTE [facility] Comment:This Pap test has be en evaluated with computerassisted technology.Microscopic features present suggestive of an interfering substance,including cellular debris, mucus, or possible lubricant (patient orprovider use). Use of lubricant is not recommended. Exercise Instruct: SEE NOTE [facility] Comment:KF, CT(ASCP)CT gloria logan location: [place] [id number] Review Exercise Instruct: [facility] Pathologist [facility] PAP Infection [facility] See Note SEE [facility] Comment:EXPLANATORY NOTE:The Pap is a screening test for cervical cancer. It isnot a diagnostic test and is subject to false negativeand false positive results. It is most reliable when asatisfactory sample, regularly obtained, is submittedwith relevant clinical findings and history, and whenthe Pap result is evaluated along with historic andcurrent clinical information. 01/21/2024 10:2 9 AM EDT 01/21/2024 4:51 PM EDT us Isabell Garcia MD LAB PATHOLOGY ORDERAB LES Final Result Performing Organization Address [facility]/ZIP Co de Phone Number [facility] [address] [place] [address] [phone] * HIV-1/2 Antigen and Antibodies, Fourth Generation, with Reflexes (09/07/2023 9:58 AM EDT) HIV AB/AG Nonreactive Nonreactive [facility] Comment:HIV-1 p24 Ag and/or HIV-1/HIV-2 Ab not detected.A test result that is nonreactive does not exclude thepossibility of exposure to or infection with HIV-1 and/orHIV-2. Nonreactive results in this assay for individualswith prior exposure to HIV-1 and/or HIV-2 may be due toantigen and antibody levels that are below the limit ofdetection of this assay.The [employer] HIV Ag/Ab Combo assay result andsupplemental assay results should be interpreted inconjunction with the patient's clinical presentation,history and other laboratory results. If the results areinconsistent with clinical evidence, additional testing issuggested to confirm the result. Blood Venous blood specimen / Unknown 09/07/2023 9:58 AM EDT 09/07/2023 11:53 AM EDT us Isabell Garcia MD LAB BLOOD ORDERABLES Final Result Performing Organization Address [facility] Co de Phone Number [facility] [address] [place] [address] [phone] * HEPATITIS C AB W/REFL TO HCV RNA, QN, PCR (02/09/2022 10:21 AM EDT) HEPATITIS C ANTIBODY NON-REACT [facility] NON-REACT [facility] INDEX 0.10 <1.00 [facility] Comment: HCV antibody was non-reactive. There is no laboratory evidence of HCV infection. In most cases, no further action is required. However, if recent HCV exposure is suspected, a test for HCV RNA (test code 82789) is suggested. For additional information please refer to http://education.HomeSpace/faq/JOG44f4 (This link is being provided for informational/ educational purposes only.) 02/09/2022 10:2 1 AM EDT Isabell Garcia MD HISTORICAL/NON ORDERA BLE LABS Final Result [facility] [address] from Last 3 Months or Most Recently Relevant to Health Maintenance Insurance [employer] Care Teams Radiology Director Relationship Specialty Start Date End Date Isabell Cotton MD [address] [place] [phone] PCP - General Family Medicine 03/02/18
--- OUTSIDE RECORDS SUMMARY | 2025-02-08 12:32 | XMS_ITS | Encounter Summary ---
Author Organization [employer] Address [address] [facility] [address] [place] [address] Care Team Providers Care Rn Surgery Icu Name Role Phone Isabell Cotton MD Primary Care Provide r Encounter Details Date Type Department Care Team (Late st Contact Info) Description 05/31/2024 Orders Only [facility] [address] [place], [place] [phone] [facility] [address] [place], [place] [phone] Bacterial vaginosis (Primary Dx) Social History Tobacco Use Types Packs/Day Years [...] documented as of this encounter Visit Diagnoses Diagnosis Bacterial vaginosis- Primary Unspecified vaginitis and vulvovaginitis documented in this encounter Additional Health Concerns Assessment Noted Time PHQ-9 Depression Total Score: 0 07/23/19 24 1:09 PM EST documented as of this encounter Care Teams Rn Surgery Icu Relationship Specialty Start Date End Date Isabell Cotton MD [address] [place] [address] PCP - General Family Medicine 03/02/18 documented as of this encounter
== END 2025-02-08 12:01 | disposition home or self-care (01) ==
LOC: HO.HWS 11:12
PROVIDERS: PCP Internal Medicine; Visit Provider Obstetrics & Gynecology
DX: Z30.431 Encounter for routine checking of intrauterine contraceptive device (principal); Z32.02 Encounter for pregnancy test, result negative
CPT/HCPCS: 99213

== ENCOUNTER → 2025-02-08 11:12 | Outpatient (BNVA) | payer MEDICAID, SELFPAY | PROVIDERS: PCP Internal Medicine; Visit Provider Obstetrics & Gynecology | DX: Z30.431 Encounter for routine checking of intrauterine contraceptive device (principal); Z32.02 Encounter for pregnancy test, result negative | CPT/HCPCS: 81025; 99212 ==